=== PATIENT | female | born 1990 | race African-American/Black ===

== ENCOUNTER 2022-08-20 08:00 | Inpatient (IN) | payer OTHER ==
[2022-08-27] MEDS ORDERED: ELECTROLYTE-148 SOLN 500 ML IV ONE ×2 (07:00→07:30)
[2022-08-27] MEDS ORDERED: CITRIC ACID/SODIUM CITRATE 30 ML UNIT-DOSE CUP PO ONE (07:00)
[2022-08-27 09:52] VITALS: BMI 26.9
[2022-08-27] MEDS ORDERED: OXYTOCIN 30 UNITS in 0.9% NS 30 UNIT/500 ML INFUS.BAG IVPB ONE (10:36)
[2022-08-27] MEDS ORDERED: ONDANSETRON 4 MG/2 ML VIAL ONE (10:38)
[2022-08-27] MEDS ORDERED: METOCLOPRAMIDE HCL INJECTION 10 MG/2 ML VIAL ONE (10:38)
[2022-08-27] MEDS ORDERED: ceFAZolin SODIUM 1 GM VIAL ONE (10:38)
[2022-08-27] MEDS ORDERED: DEXAMETHASONE SOD PHOSPHATE 4 MG/1 ML VIAL ONE (10:38)
[2022-08-27] MEDS ORDERED: FENTANYL CITRATE/PF 50 MCG/ML VIAL ONE (10:38)
[2022-08-27] MEDS ORDERED: morphine SULFATE/PF 1 MG/2 ML (2cc Syringe - QUVA) ONE (10:38)
[2022-08-27] MEDS ORDERED: morphine SULFATE/PF 1 MG/2 ML (2cc Syringe - QUVA) IT ONE (11:18)
[2022-08-27] MEDS ORDERED: KETOROLAC TROMETHAMINE 30 MG/1 ML VIAL ONE (11:43)
[2022-08-27] MEDS ORDERED: IBUPROFEN 800 MG/8 ML IJ IVPB PRN (12:24)
[2022-08-27] MEDS ORDERED: IBUPROFEN 600 MG TABLET (FP) PO PRN (12:24)
[2022-08-27] MEDS ORDERED: ONDANSETRON 4 MG/2 ML VIAL IVPB PRN (12:24)
[2022-08-27] MEDS ORDERED: TRANEXAMIC ACID 1000 MG/10 ML VIAL ONE (12:29)
[2022-08-27] MEDS ORDERED: OXYTOCIN 20 UNITS in 0.9% NS 20 UNIT/1,000 ML INFUS.BAG IV ONE (12:46)
[2022-08-27] MEDS: OXYTOCIN 20 UNITS in 0.9% NS 20 UNIT/1,000 ML INFUS.BAG IV SCH ×2 (12:55→18:40)
[2022-08-27] MEDS ORDERED: ACETAMINOPHEN INJECTION 100 ML IVPB ONE (15:18)
[2022-08-27] MEDS: ACETAMINOPHEN 1000 MG/100 ML BAG IVPB SCH ×2 (15:25→18:41)
[2022-08-28] MEDS: ACETAMINOPHEN 1000 MG/100 ML BAG IVPB SCH ×2 (00:54→06:08)
[2022-08-28 07:35] LABS: BASO % 0.1 % (0-2.0); EOS % 0.2 % (0-4.5); HEMATOCRIT 29.3 % (32.4-45.2); HEMOGLOBIN 9.2 GM/dL (10.7-15.3); LYMPH % 25.6 % (8-40); MCH 21.1 pg (25.7-33.7); MCHC 31.5 g/dl (32.0-36.0); MEAN CELL VOLUME 67.1 fl (80-96); MEAN PLT VOLUME 8.1 fl (7.5-11.1); MONO % 8.3 % (3.8-10.2); NEUT % 65.8 % (42.8-82.8); PLATELET COUNT 249 10^3/uL (134-434); RBC 4.37 M/mm3 (3.60-5.2); RDW 17.4 % (11.6-15.6)
[2022-08-28 10:18] LABS: ANISOCYTOSIS 3+; MACROCYTOSIS 0
[2022-08-28] MEDS: ACETAMINOPHEN 325 MG TABLET (FP) PO PRN ×2 (11:43→20:16)
[2022-08-28] MEDS ORDERED: BISACODYL 10 MG SUPP.RECT RC PRN (12:24)
[2022-08-28] MEDS: oxyCODONE HCL 5 MG TABLET PO PRN ×2 (15:39→23:08)
[2022-08-28] MEDS: SIMETHICONE 80 MG TAB.CHEW (FP) PO PRN ×2 (15:40→20:16)
[2022-08-28 21:56] VITALS: RESP 18
[2022-08-29] MEDS: ACETAMINOPHEN 325 MG TABLET (FP) PO PRN (04:24)
[2022-08-29] MEDS: SENNOSIDES/DOCUSATE COMBO (SENNA PLUS) TABLET (UD) PO PRN (04:24)
[2022-08-29] MEDS: SIMETHICONE 80 MG TAB.CHEW (FP) PO PRN ×2 (04:24→07:54)
[2022-08-29] MEDS ORDERED: IBUPROFEN 600 MG TABLET (FP) PO SCH ×2 (10:30→12:00)
[2022-08-29] MEDS: IBUPROFEN 600 MG TABLET (FP) PO SCH ×2 (10:36→17:08)
[2022-08-30] MEDS: SIMETHICONE 80 MG TAB.CHEW (FP) PO PRN ×2 (00:14→05:49)
[2022-08-30] MEDS: IBUPROFEN 600 MG TABLET (FP) PO SCH ×3 (00:14→12:18)
[2022-08-30] MEDS: SENNOSIDES/DOCUSATE COMBO (SENNA PLUS) TABLET (UD) PO PRN (00:15)
[2022-08-30 10:25] VITALS: BP 108/78; PULSE 68; TEMP 97.4
== END 2022-08-30 14:30 | disposition home or self-care (01) | DRG 788 ==
LOC: JLDR 08-27 08:07 → J3W 08-27 15:39
PROVIDERS: ADMIT Specialist; ATTEND Specialist
PROC: 10D00Z1 Extraction of Products of Conception, Low, Open Approach (ICD-10-PCS; principal; 2022-08-27)
DX: O34.29 Maternal care due to uterine scar from other previous surgery (principal); Z3A.38 38 weeks gestation of pregnancy; Z37.0 Single live birth
CPT/HCPCS: 36415; 85025; 86850; 86900; 86922; 88307-TC